=== PATIENT | male | born 1935 ===

== ENCOUNTER 2023-03-30 08:33 | Outpatient (CLI) | payer MEDICARE, SELFPAY ==
--- NOTE | 2023-03-30 08:30 | RT.EKG_ITS ---
APPROVED REPORT Exam: Resting ECG Reason for Exam: syncope Patient Location: O HR:60 bpm ECG Measurements Heart Rate 60 AXIS GA 289 P 49 QRSd 138 QRS -67 QT 454 T 101 QTc 454 Conclusion Sinus rhythm...normal P axis, V-rate 50- 99 Ventricular premature complex...V complex w/ short R-R interval Prolonged GA interval...GA >220, V-rate 50- 90 Right bundle branch block...QRSd>120, terminal axis(90,270) LAFB Baseline wander in lead(s) V2
== END 2023-03-30 08:34 | disposition home or self-care (01) ==
LOC: DI.CARD 08:34
PROVIDERS: Visit Provider Internal Medicine Cardiovascular Disease
DX: R55 Syncope and collapse (principal)
CPT/HCPCS: 93010

== ENCOUNTER → 2023-03-30 13:37 | Outpatient (BNVA) | payer MEDICARE, SELFPAY | PROVIDERS: Visit Provider Internal Medicine Cardiovascular Disease | DX: I45.2 Bifascicular block (principal); R55 Syncope and collapse | CPT/HCPCS: 93005; 99203 ==

== ENCOUNTER 2023-03-30 14:41 | Outpatient (CLI) | payer MEDICARE, SELFPAY | END 2023-03-30 14:42 | disposition home or self-care (01) | PROVIDERS: Visit Provider Internal Medicine Cardiovascular Disease | DX: I45.2 Bifascicular block (principal); R55 Syncope and collapse | CPT/HCPCS: 93246 ==

== ENCOUNTER 2023-04-25 08:41 | Outpatient (CLI) | payer MEDICARE, SELFPAY ==
--- NOTE | 2023-04-25 10:11 | W.CARDEVENT ---
Date of service: 04/25/23 Time of Service: 10:11 Cardiac Event Recorder Referring Provider:: Anum cortes Indications:: Syncope Cardiac Event Note: This is a cardiac event monitor ordered for syncope. Patient was monitored for for 12 days and 8 hours Rhythm throughout was sinus with first-degree AV block. Average heart rate was 57. Minimum was 36, maximum 93 There were occasional ventricular ectopic beats, rare couplets. A total of 11 runs of nonsustained ventricular tachycardia were recorded. The longest of these was 17 beats in duration There were occasional atrial premature beats. A total of 22 self-limited atrial runs occurred. The longest of these was 13 beats in duration There was no atrial fibrillation, no high-grade AV block, no pauses greater than 3 seconds No patient symptoms were reported
== END 2023-04-25 08:42 | disposition home or self-care (01) ==
LOC: CARDOPNVT 08:41
PROVIDERS: Visit Provider Internal Medicine Cardiovascular Disease
DX: R55 Syncope and collapse (principal); I47.20 Ventricular tachycardia, unspecified
CPT/HCPCS: 93248

== ENCOUNTER → 2023-05-04 10:40 | Outpatient (BNVA) | payer MEDICARE, SELFPAY | PROVIDERS: Visit Provider Internal Medicine Cardiovascular Disease | DX: I45.2 Bifascicular block (principal); R55 Syncope and collapse; I10 Essential (primary) hypertension | CPT/HCPCS: 99212 ==